=== PATIENT | female | born 1950 | race Caucasian/White ===

== ENCOUNTER 2017-07-23 10:02 | Emergency (ER) | payer OTHER ==
[~2017-07-23] VITALS: Ht 162.6 cm; Wt 52.2 kg
[~2017-07-23 10:02] MED LIST: CITRACAL + D 311 TAB PO; DAILY MULTIPLE1 TAB PO; VITAMIN D32000 I1 PO
--- NOTE | 2017-07-23 10:10 | ED GENERAL ADULT ---
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 NO DEFORMITY NOTED. +CMS. TOOK TYLENOL AROUND 0400 THIS MORNING. Past History Travel History Traveled to [place] past 21 day No Medical History Cancer(s): MELANOMA (1999) Psychosocial History What is your primary language Arabic Tobacco Use: Never used ETOH Use: denies use Illicit Drug Use: denies illicit drug use Progress Plan of Care: Orders Procedure Date/time Status XRY-HAND, 3 View LEFT 07/23 1013 Active Departure Departure Condition: Stable Referrals: Alisa TERRAZAS,[facility] Departure Forms: Customer Survey General Discharge Information Prescriptions: Current Visit Scripts No Known Home Medications
--- NOTE | 2017-07-23 10:13 | ED HAND/WRIST INJURY COMPLAINT ---
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 NO DEFORMITY NOTED. +CMS. TOOK TYLENOL AROUND 0400 THIS MORNING. Triage Nurses Notes Reviewed? yes Occurred: yesterday Duration: day(s): (1), constant Timing: recent history Injury Environment: home Severity: moderate, severe Pain/Injury Location: Left: Hand. Method of Injury: fall No Modifying Factors: none HPI: 67-year-old female comes into the emergency room with complaints of left hand pain and swelling. Patient reports that she fell yesterday in her wrist and hand bent backwards. She's had some pain and swelling since then. She comes in for further evaluation. Denies any pain to her elbow. Denies any trauma anywhere else. Denies any other system symptoms. (Rodo Barboza) Past History Travel History Traveled to [place] past 21 day No Medical History Any Pertinent Medical History? none Cancer(s): MELANOMA (1999) Surgical History Surgical History: non-contributory Psychosocial History What is your primary language Urdu Tobacco Use: Never used ETOH Use: denies use Illicit Drug Use: denies illicit drug use Family History Hx Contributory? No (Rodo Barboza) Review of Systems Review of Systems Constitutional: Reports: no symptoms. EENTM: Reports: no symptoms. Respiratory: Reports: no symptoms. Cardiovascular: Reports: no symptoms. GI: Reports: no symptoms. Genitourinary: Reports: no symptoms. Musculoskeletal: Reports: see HPI. Skin: Reports: no symptoms. Neurological/Psychological: Reports: no symptoms. Hematologic/Endocrine: Reports: no symptoms. Immunologic/Allergic: Reports: no symptoms. All Other Systems: Reviewed and Negative (Rodo Barboza) Physical Exam Physical Exam General Appearance: well developed/nourished, mild distress Head: atraumatic Eyes: Bilateral: normal appearance. Ears, Nose, Throat: normal ENT inspection, hearing grossly normal Neck: normal inspection Cardiovascular/Respiratory: no respiratory distress Back: normal inspection Hand Left: limited range of motion, swelling Hand Right: normal inspection Neurologic/Tendon: normal sensation, normal motor functions, normal tendon functions, responds to pain, no evidence tendon injury, no pulse deficit Skin: intact, normal color, warm/dry (Rodo Barboza) Progress Differential Diagnosis: contusion, dislocation, fracture, sprain Plan of Care: Orders Procedure Date/time Status Durable Medical Equipment 07/23 1150 Active Diagnostic Imaging: Viewed by Me: Radiology Read. Discussed w/RAD: Radiology Read. Radiology Impression: PATIENT: HARINDER BHATTI PRESENT AGE: 67 PATIENT ACCOUNT NO: [id number] : 50 LOCATION: [facility] ORDERING PHYSICIAN: Rodo ANDERSEN SERVICE DATE: 07/23/17 EXAM TYPE: RAD - XRY-HAND, LEFT EXAMINATION: XR HAND, LEFT CLINICAL INFORMATION: Fall with pain and swelling on the top of the hand COMPARISON: None TECHNIQUE: PA, lateral, and oblique views of the left hand. FINDINGS: Degenerative changes are present at the DIP joints and to a lesser extent the PIP joints. Marked degenerative changes are present at the base of the thumb. Some generalized osteopenia is present. No bony destructive lesions or fractures are seen. IMPRESSION: Degenerative joint disease without fracture. DICTATED BY: Edilson Brewster MD DATE /TIME DICTATED:07/23/171053 LAMINATING MACHINE OFFBEARER:MARTHA DATE/TIME TRANSCRIBED: 07/23/171053 CONFIDENTIAL, DO NOT COPY WITHOUT APPROPRIATE AUTHORIZATION. < Electronically signed in Other Vendor System> SIGNED BY: Edilson Brewster MD 07/23/17 1138 (Rodo Barboza) Departure Departure Disposition: HOME OR SELF CARE Condition: Stable Clinical Impression Primary Impression: Sprain of hand, left Referrals: Alondra TERRAZAS,Benito Thompson MD,Carla Garcia (PCP/Family) Additional Instructions: Ice. Tylenol for pain. Follow-up with orthopedic doctor if not better in 5-7 days. Return if any concerns. Please go over all results of today's visit with your primary care doctor. Contact your primary care doctor to let them know you were here in the emergency room. There may be nonspecific findings which may not be related to your visit today here in the emergency room but may require further evaluation and chronic monitoring by your primary care doctor. If you had a laceration today the chance of foreign body always remains. You should follow-up with your primary care doctor for recheck in 3-5 days for a wound check. If you had an x-ray done there is a chance that a fracture could have been missed on initial read and you should follow-up with your primary care doctor for repeat x-rays if symptoms persist. If your blood pressure was elevated here in the emergency room please have rechecked by ruth primary care doctor within the next 48. If you were prescribed a narcotic here in the emergency room or any type of controlled substances you're not allowed to drive while taking this medication or operate any type of heavy machinery. Narcotics can make you feel lightheaded dizziness nausea and can cause constipation. You may need to pear picker a stool softener. Thank you for choosing [facility] emergency room. Please return to the emergency room immediately if you have any other concerns worsening of symptoms. Departure Forms: Customer Survey General Discharge Information Prescriptions: Current Visit Scripts No Known Home Medications (Rodo Barboza) PA/CERTIFIED PROSTHETIST VICE PRESIDENT Co-Sign Statement Statement: ED Attending supervision documentation- [X] I saw and evaluated the patient. I have also reviewed all the pertinent lab results and diagnostic results. I agree with the findings and the plan of care as documented in the PA's/CERTIFIED PROSTHETIST VICE PRESIDENT's documentation. [] I have reviewed the ED Record and agree with the PA's/CERTIFIED PROSTHETIST VICE PRESIDENT's documentation. [] Additions or exceptions (if any) to the PAs/CERTIFIED PROSTHETIST VICE PRESIDENT's note and plan are summarized below: [] (Michael Dang DO) Procedures Splinting Location: LEFT WRIST Manual Alignment Performed: No Pre-Made Type: velcro Splint: wrist Splint Applied By: splint applied by me Pre-Proc Neuro Vasc Exam: normal Post-Proc Neuro Vasc Exam: normal (Rodo Barboza)
--- NOTE | 2017-07-23 11:38 | RADIOLOGY REPORT ---
EXAMINATION: XR HAND, LEFT CLINICAL INFORMATION: Fall with pain and swelling on the top of the hand COMPARISON: None TECHNIQUE: PA, lateral, and oblique views of the left hand. FINDINGS: Degenerative changes are present at the DIP joints and to a lesser extent the PIP joints. Marked degenerative changes are present at the base of the thumb. Some generalized osteopenia is present. No bony destructive lesions or fractures are seen. IMPRESSION: Degenerative joint disease without fracture.
[2017-07-23 12:16] VITALS: BP 140/75
== END 2017-07-23 12:32 ==
LOC: ERH 10:02
DX: S63.92XA Sprain of unspecified part of left wrist and hand, initial encounter (principal); W19.XXXA Unspecified fall, initial encounter; Y93.9 Activity, unspecified; Y92.009 Unspecified place in unspecified non-institutional (private) residence as the place of occurrence of the external cause
CPT/HCPCS: 73130-LT